=== PATIENT | female | born 1960 | race Caucasian/White ===

== ENCOUNTER 2019-07-13 15:36 | Emergency (ER) | payer OTHER ==
[~2019-07-13] VITALS: Ht 160 cm; Wt 72.6 kg
[~2019-07-13 15:36] MED LIST: GILTUSS LIQUID237 M1 PO; PROVENTIL3 ML/2.5 M IH; ZITHROMAX500 MG PO
[2019-07-13] MEDS ORDERED: HUMULIN 70100 UNIT/2 (16:10)
[2019-07-13] MEDS ORDERED: FARXIGA5 MG (16:10)
== END 2019-07-13 21:22 | disposition home or self-care (01) ==
LOC: ER 15:36
DX: L03.115 Cellulitis of right lower limb (principal)

== ENCOUNTER 2021-04-19 20:53 | Inpatient (IN) | payer OTHER ==
[~2021-04-19] VITALS: Ht 160 cm
[~2021-04-19 20:53] MED LIST changes: +FARXIGA5 MG; +HUMULIN 70100 UNIT/2
== END 2021-04-26 18:37 | DRG 593 ==
LOC: ER 20:53 → MEDI 04-20 18:34
PROVIDERS: ADMIT Internal Medicine; ATTEND Internal Medicine
PROC: BQ3MZZZ Magnetic Resonance Imaging (MRI) of Left Foot (ICD-10-PCS; principal; 2021-04-21)
DX: L97.519 Non-pressure chronic ulcer of other part of right foot with unspecified severity (principal); L03.115 Cellulitis of right lower limb; E11.9 Type 2 diabetes mellitus without complications; Z79.4 Long term (current) use of insulin; I10 Essential (primary) hypertension; Z20.822 Contact with and (suspected) exposure to COVID-19